=== PATIENT | female | born 1970 | race Caucasian/White ===

== ENCOUNTER 2016-07-02 08:45 | Inpatient (IN) ==
--- NOTE | 2016-06-29 22:40 | Discharge Summary ---
<Carrie Keita - Last Filed: 07/02/16 13:18> - Discharge Diagnosis (1) Arthritis of knee, left Priority: Primary Status: Acute (2) Obesity (BMI 30.0-34.9) Status: Chronic (3) Tobacco abuse Status: Chronic - Discharge Medications Home Medications: Aspirin Enteric Coated [Aspirin EC] 325 mg PO DAILY #21 tablet. 07/02/16 [Rx] OxyCODONE Immed Rel [Roxicodone 5 MG] 5 - 10 mg PO Q6HR PRN #40 tablet 07/02/16 [Rx] Allergies/Adverse Reactions: Allergies acetaminophen [From [place]] Adverse Reaction (Verified 07/02/16 09:15) vomiting, itching codeine Adverse Reaction (Verified 07/02/16 09:15) vomiting, itching hydrocodone [From [place]] Adverse Reaction (Verified 07/02/16 09:15) vomiting, itching morphine Adverse Reaction (Verified 07/02/16 09:15) vomiting, itching tramadol Adverse Reaction (Verified 07/02/16 09:15) vomiting, itching Primary care physician: Angella Cuadra CNP - Patient Status Disposition: Home, Self-Care Condition: Good - Discharge Instructions Follow Up With: Angella Cuadra CNP [Primary Care Provider] - - Hospital Course Hospital course: Ms. Cook is a 45 year old female - Time Spent with Patient Total time spent providing and/or coordinating discharge services: <Jay Johnson - Last Filed: 07/04/16 06:27> Date of Encounter: 07/04/16 Time of Encounter: 06:27 - Discharge Diagnosis (1) Tobacco abuse Priority: Secondary Status: Chronic (2) Obesity (BMI 30.0-34.9) Priority: Secondary Status: Chronic (3) Arthritis of knee, left Priority: Primary Status: Acute (4) Acute blood loss anemia Priority: Primary Status: Acute Primary care physician: Angella Cuadra CNP - Patient Status Functional capacity at discharge: uses cane/walker Overall status at discharge: patient is progressing back to baseline - Hospital Course Hospital course: Ms. Cook is a 45 year old female The patient had an uneventful postoperative course. They received antibiotics and physical therapy and were discharged in stable condition. There will follow -up in the office in 2 weeks. Aspirin DVT prophylaxis - Time Spent with Patient Total time spent providing and/or coordinating discharge services:
--- NOTE | 2016-07-02 08:47 | History & Physical Report ---
Date of Encounter: 07/02/16 Time of Encounter: 08:47 24 Hour HP Update - Instructions Instructions: If the History and Physical is less than 30 days old and was completed prior to A.M. admission and or procedure and has NOT been updated on calendar day of procedure please complete this update prior to performing procedure. - Update Patient reports changes in Medical Condition: No Changes in assessment/condition: No Changes in Medication: No Preop tests/diagnostics Reviewed: Yes Surgery Remains Indicated: Yes Consent for Planned Operative Procedure(s) Verified: Yes - Pre-Operative Checklist Preoperative Checklist Indicated: No Prophylactic Antibiotic Ordered: Yes Is VTE Prophylaxis Indicated?: Yes
[2016-07-02] MEDS: Ringers Solution, Lactated 1,000 ML IVC SCH ×2 (09:20→13:06)
[2016-07-02] MEDS ORDERED: Albuterol 2.5 MG/3 ML NEBULIZER IH ONE (09:28)
[2016-07-02] MEDS ORDERED: CeFAZolin Pre 2,000 MG/100 ML 2,000 MG/100 ML BAG IVPB ONE (09:28)
--- NOTE | 2016-07-02 09:50 | Anesthesia Evaluation PreOp ---
Date of Encounter: 07/02/16 Time of Encounter: 09:48 - Past History Planned Operation: L tka Cardiac History: Denies any Significant Hx Pulmonary History: Smoker, Snore TIRE LAYER History: Denies Any Significant HX Other Medical History: Renal (stones), Other (pud) Anesthesia History: No Prior Anesthetic Complications, Past Anesthesia (glen, cholecyst, stones, l knee arth) Alcohol Use: occasionally Drug use: none Medications and Allergies OxyCODONE/APAP 5/325 [Percocet 5/325 MG] 1 each PO Q6HR PRN 07/02/16 [History] Allergies acetaminophen [From [place]] Adverse Reaction (Verified 07/02/16 09:15) vomiting, itching codeine Adverse Reaction (Verified 07/02/16 09:15) vomiting, itching hydrocodone [From Van] Adverse Reaction (Verified 07/02/16 09:15) vomiting, itching morphine Adverse Reaction (Verified 07/02/16 09:15) vomiting, itching tramadol Adverse Reaction (Verified 07/02/16 09:15) vomiting, itching - Meds/Allergy Pre-op Review Medications Reviewed: Yes Allergies Reviewed: Yes Beta Blockers on Current Med List: No Anesthesia Results - Labs Laboratory Tests 06/03/16 06/03/16 06/03/16 12:19 12:19 12:19 Hgb 14.2 Hct 41.2 Plt Count 267 PT 10.5 INR 1.0 APTT 22.2 L Sodium 135 L Potassium 4.4 Creatinine 0.74 - Imaging EKG: report reviewed (sr) Anesthesia Exam O2 Sat Height 1.57 m Height 1.57 m Height 1.57 m Weight 80.739 kg Weight 80.739 kg Weight 80.739 kg O2 Sat by Pulse Oximetry 96 O2 Sat by Pulse Oximetry 96 Vital Signs Temp Pulse Resp BP Pulse Ox 99.1 F 102 18 117/84 96 07/02/16 09:03 07/02/16 09:03 07/02/16 09:03 07/02/16 09:03 07/02/16 09:03 Height: 1.57 Weight: 81 NPO (# of Hours): >8 - HEENT Pupil (Motor): Pupils equal, EOMI Mallampati: II Teeth: Poor dentition Oral Opening: Greater than 3 - TIRE LAYER LOC: Oriented TIRE LAYER Motor: Normal RUE, Normal LUE, Normal RLE, Normal LLE, Normal Face TIRE LAYER Sensory: Normal: RUE, LUE, RLE, LLE, Face - Cardiac Rhythm: Regular Murmur: None - Pulmonary Breath Sounds: bilateral Clear Respiratory Effort: Symmetrical Anesthesia Assess/Plan ASA Score: 2 Modified [place] Scale for Level of Consciousness: Cooperative, oriented, and tranquil Anesthetic Plan: General, Regional Monitoring Plan: Standard Monitors Recovery Plan: PACU
[2016-07-02] MEDS ORDERED: *HR* Propofol 200 MG/20 ML VIAL IVP ONE (10:09)
[2016-07-02] MEDS ORDERED: Lidocaine -MPF 2% 2 ML VIAL ONE (10:10)
[2016-07-02] MEDS ORDERED: Dexamethasone 4 MG/ML VIAL ONE (10:10)
[2016-07-02] MEDS ORDERED: *HR* Midazolam HCl 2 MG/2 ML VIAL ONE ×2 (10:10→10:54)
[2016-07-02] MEDS ORDERED: *HR* FentaNYL (PF) 100 MCG/2 ML VIAL ONE ×2 (10:10→10:54)
[2016-07-02] MEDS ORDERED: Ondansetron 4 MG/2 ML VIAL ONE (10:10)
[2016-07-02] MEDS ORDERED: *HR* Labetalol 100 MG/20 ML MDV IVP PRN (10:15)
[2016-07-02] MEDS ORDERED: *HR* Promethazine 25 MG/ML VIAL IVP PRN (10:15)
[2016-07-02] MEDS ORDERED: Ketorolac 15 MG/ML VIAL IVP ONE (10:15)
[2016-07-02] MEDS ORDERED: Bupivacaine/Clonidine Syringe 1 EACH SYRINGE ONE (10:53)
[2016-07-02] MEDS ORDERED: ROPIVACAINE HCL/PF 0.5% 30 ML VIAL ONE (10:53)
--- NOTE | 2016-07-02 11:23 | Anesthesia Procedures ---
Date of Encounter: 07/02/16 Time of Encounter: 11:05 Procedures: Anesthesia - Nerve Block Procedure Date: 07/02/16 Time: 11:05 Allergies/Adv Reactions: Allergies Allergy/AdvReac Type Severity Reaction Status Date / Time acetaminophen [From [place]] AdvReac vomiting, Verified 07/02/16 09:15 itching codeine AdvReac vomiting, Verified 07/02/16 09:15 itching hydrocodone [From [place]] AdvReac vomiting, Verified 07/02/16 09:15 itching morphine AdvReac vomiting, Verified 07/02/16 09:15 itching tramadol AdvReac vomiting, Verified 07/02/16 09:15 itching Vital Signs/O2 Sat/Glucose, Most Recent Temp Pulse Resp BP Pulse Ox 99.1 F 98 16 118/86 98 07/02/16 09:34 07/02/16 10:44 07/02/16 10:44 07/02/16 10:44 07/02/16 10:44 Surgical Procedure: Left TKA Checklist: Correct Patient Identifier, Correct procedure, History checked Correct side: Left Blood Thinner: No Monitor Applied: EKG, BP, Pulse Oximetry Supplemental Oxygen via Nasal Cannula (L/min): 2 Sedation: Versed (mg): 4 Sedation: Fentanyl (mcg): 100 Indication: Post Op Analgesia (per dr. harden) Pre-op Neuro Deficits: No Block Type: Femoral, Other (ipack) Catheter placed: No Sterile Technique: Yes Ultrasound used: Yes Anatomy identified: Yes Visual spread of Local: Yes Neuro Stimulation: Yes Nerve Stimulator Range: 0.2 - 0.4 mA Blood on Needle Aspiration: No Smooth Injection of Local: Yes Pain with Injection of Local: No Prep: Chlorhexadine Needle: 22 x 50 mm Stimuplex (femoral), 21 x 100 mm Stimuplex (ipack) Local: 0.25% Bupivicaine w/Clonidine 20 mcg/cc (20cc for ipack), Ropivacaine ( 0.5% 30 cc for femoral) Volume (cc): 30 femoral, 20 ipack Number of Attempts: 1 Complications: None/effective block Vitals: Vital Signs/O2 Sat/Glucose, Most Recent Temp Pulse Resp BP Pulse Ox 99.1 F 98 16 118/86 98 07/02/16 09:34 07/02/16 10:44 07/02/16 10:44 07/02/16 10:44 07/02/16 10:44 Comments: raul
--- NOTE | 2016-07-02 11:49 | Orthopedic Operative Note ---
Date of procedure: 07/02/16 Pre-op diagnosis: Left knee arthritis Post-op diagnosis: same Procedure: Procedure: Left Total knee replacement Estimated blood loss: 200 cc Hardware: Arthrex Femur: 5 Tibia: 5 PS insert: 14 Patella: 37 Exam Under anesthesia: External rotation deformity loss of full extension 5 degrees varus alignment. Procedural Notes: Grade 4 arthritic changes medial compartment grade 3 arthritic changes patellofemoral joint large loose body Operative procedure: The patient was brought to the operating room and placed on the operating room table. After general anesthesia was administered the operative knee was examined. Findings were noted in the exam under anesthesia. The operative extremity was prepped and draped in sterile surgical fashion. The patient received IV antibiotics prior to skin incision. A standard midline incision was made centered over the patella. The incision was made through the skin and subcutaneous tissue. A medial parapatellar tendon approach was performed. Care was taken to preserve tissue along the medial aspect of the patella. And to protect the patella tendon. The deep MCL was released off the medial tibia. The infra patella fat pad was excised. Knee was brought into flexion. Patient noted to have a large loose body which was removed, grade 4 arthritic changes medial compartment, grade 3 arthritic changes patellofemoral joint. The entry hole was made for the intramedullary femoral guide. The guide was seated in 6 degrees of valgus. Anterior cut was made followed by the distal cut. The ACL the PCL the medial and the lateral menisci were excised. The tibia was subluxed forward. The entry hole was made for the intramedullary tibial guide. Guide was seated to resect 2 mm off the more abnormal side. The knee was brought into flexion the distal femur was sized to a 5. The femoral guide was seated, the anterior cut was made followed by the posterior condylar cut, followed by the chamfer cuts. The finishing guide was seated the box cut was made and the lug holes were drilled. The tibia was sized to a 5, the tibial tray was seated and prepared with the large drill followed by the fin cutter. Trial reduction revealed full extension no varus valgus instability with the appropriate 14 PS Yelitza. The patella was everted and cut was made at the level of the insertion of the quadriceps and patella tendon. The patella was sized to a 37 the guide was seated and the lug holes are drilled. Trial reduction revealed excellent patella tracking. All trial components were removed all bony surfaces were irrigated. The tibia was cemented first followed by the femur. The 14 PS Yelitza was seated and the knee was brought into full extension. The patella was cemented and held in place with the patellar holding clamp. After the cement had hardened, the knee sat for 2 minutes with a Betadine saline solution. The knee was then irrigated out with 2 L of pulse irrigation. The extensor mechanism was closed with #2 FiberWire suture and #2 PDS suture. The subcutaneous tissue was then irrigated and closed deep with #1 PDS suture superficially with 0 PDS suture and skin was closed with skin milka. The patient was then placed in a sterile dressing and a postoperative brace extubated and transferred to recovery room in stable condition. Anesthesia: CHARITO Surgeon: Jay Johnson Box Toe Stitcher: Carrie Keita Condition: stable Disposition: PACU
[2016-07-02] MEDS ORDERED: *HR* HYDROmorphone 2 MG/ML SYRINGE ONE (12:19)
[2016-07-02] MEDS ORDERED: Acetaminophen IV 1,000 MG/100 ML INFUS..BTL IVPB ONE (12:43)
[2016-07-02] MEDS: *HR* HYDROmorphone (PF) 1 MG/ML SYRINGE IVP PRN ×4 (12:47→21:19)
[2016-07-02 13:03] LABS: Hematocrit 38.8 % (35.3-44.9); Hemoglobin 13.5 g/dL (11.5-15.4)
--- NOTE | 2016-07-02 13:29 | Anesthesia Evaluation Post Op ---
Date of Encounter: 07/02/16 Time of Encounter: 13:28 - Vital Signs Vital Signs: Vital Signs/O2 Sat/Glucose, Most Current Temp Pulse Resp BP Pulse Ox 07/02/16 13:19 97.9 F 98 16 125/92 95 07/02/16 13:09 90 16 118/81 94 L 07/02/16 12:59 89 16 110/79 93 L 07/02/16 12:49 98.4 F 88 16 100/75 95 07/02/16 12:39 93 16 107/76 96 07/02/16 12:29 82 22 106/72 95 07/02/16 12:19 98.1 F 77 22 98/79 95 07/02/16 10:44 98 16 118/86 98 07/02/16 09:50 18 117/84 96 07/02/16 09:34 99.1 F 102 18 117/84 96 - Lungs Lungs: Clear Ascult./Percussion - Airway Airway: Non-obstructed - Cardiovascular Regular Rate - Mental Status Mental Status: Alert & Oriented, Answers Appropriately - Pain Pain Scale: 4 Pain Scale used: Jorge (Faces) - Nausea Vomiting Nausea Vomiting: Not Present - Hydration Hydration: Tolerates oral liquids - Discharge PostOp Status: Discharge Patient to home
[2016-07-02] MEDS ORDERED: Temazepam 15 MG CAPSULE PO PRN (14:01)
[2016-07-02] MEDS ORDERED: Ondansetron 4 MG/2 ML VIAL IVP PRN (14:01)
[2016-07-02] MEDS ORDERED: MOM Conc 10 ML UD.LIQ PO PRN (14:01)
[2016-07-02] MEDS ORDERED: *HR* OxyCODONE Immed Rel 5 MG TABLET PO PRN (14:01)
[2016-07-02] MEDS ORDERED: Naloxone 0.4 MG/ML INJ IVP PRN (14:01)
[2016-07-02] MEDS ORDERED: Sennosides 8.6 MG TABLET PO PRN (14:01)
[2016-07-02] MEDS ORDERED: Ringers Solution, Lactated 1,000 ML IVC SCH (14:01)
[2016-07-02] MEDS: *HR* OxyCODONE Immed Rel 5 MG TABLET PO PRN ×2 (14:34→22:49)
[2016-07-02] MEDS ORDERED: *HR* Enoxaparin 30 MG/0.3 ML SYRINGE SQ SCH (18:00)
[2016-07-02] MEDS: ceFAZolin 2,000 MG in D5% in Water 100 ML IVPB SCH (18:06)
[2016-07-02] MEDS: *HR* Enoxaparin 30 MG/0.3 ML SYRINGE SQ SCH (18:07)
[2016-07-03] MEDS: *HR* HYDROmorphone (PF) 1 MG/ML SYRINGE IVP PRN ×10 (00:27→22:34)
[2016-07-03] MEDS: *HR* OxyCODONE Immed Rel 5 MG TABLET PO PRN ×2 (04:30→09:13)
[2016-07-03] MEDS: *HR* Enoxaparin 30 MG/0.3 ML SYRINGE SQ SCH ×2 (05:33→17:09)
[2016-07-03 06:01] LABS: Hematocrit 32.7 % (35.3-44.9); Hemoglobin 11.4 g/dL (11.5-15.4)
[2016-07-03] MEDS: ceFAZolin 2,000 MG in D5% in Water 100 ML IVPB SCH (06:43)
[2016-07-03 07:09] LABS: BUN/Creatinine Ratio 30 (6-26); Blood Urea Nitrogen 21 mg/dL (7-20); Calcium 8.8 mg/dL (8.6-10.8); Carbon Dioxide 15 mEq/L (19-29); Chloride 107 mEq/L (98-109); Glucose 121 mg/dL (70-99); Osmolality,Calculated 286 (280-300); Sodium 136 mEq/L (136-145); eGFR For African Americans > 60 (> 60); eGFR For Non-African Americans > 60 (> 60)
[2016-07-03 07:16] LABS: Potassium 4.7 mEq/L (3.5-4.5)
[2016-07-03] MEDS: Gabapentin 300 MG CAPSULE PO SCH ×3 (07:53→19:53)
--- NOTE | 2016-07-03 08:06 | Orthopedics Progress Note ---
Date of Encounter: 07/03/16 Time of Encounter: 08:05 - Assessment and Plan (1) Tobacco abuse Current Visit: Yes Status: Chronic (2) Obesity (BMI 30.0-34.9) Current Visit: Yes Status: Chronic (3) Arthritis of knee, left Current Visit: Yes Status: Acute Subjective Interval history: Patient was seen this morning complains of pain. Afebrile vital signs stable. Operative extremity: Neurovascularly intact Dressing clean dry and intact Calves nontender Assessment and plan: Continue with postoperative care will start on Neurontin and Flexeril. Objective Vital signs: Vital Signs Temp Pulse Resp BP Pulse Ox 07/03/16 07:08 98.1 F 107 16 115/74 94 L 07/03/16 00:43 98.1 F 96 16 125/85 93 L 07/02/16 22:30 98.7 F 120 18 132/84 94 L 07/02/16 15:50 98.0 F 91 16 119/90 96 07/02/16 14:50 98.1 F 95 17 114/87 96 07/02/16 14:20 97.9 F 95 15 122/89 95 07/02/16 13:50 97.7 F 98 18 132/95 95 07/02/16 13:29 97.9 F 99 16 113/83 96 07/02/16 13:19 97.9 F 98 16 125/92 95 07/02/16 13:09 90 16 118/81 94 L 07/02/16 12:59 89 16 110/79 93 L 07/02/16 12:49 98.4 F 88 16 100/75 95 07/02/16 12:39 93 16 107/76 96 07/02/16 12:29 82 22 106/72 95 07/02/16 12:19 98.1 F 77 22 98/79 95 07/02/16 10:44 98 16 118/86 98 07/02/16 09:50 18 117/84 96 07/02/16 09:34 99.1 F 102 18 117/84 96 07/02/16 09:03 99.1 F 102 18 117/84 96 - Labs CBC & BMP: 07/03/16 04:20 07/03/16 04:20 Labs: Abnormal lab results Hgb 11.4 g/dL (11.5-15.4) L D 07/03/16 04:20 Hct 32.7 % (35.3-44.9) L 07/03/16 04:20 Potassium 4.7 mEq/L (3.5-4.5) H 07/03/16 04:20 Carbon Dioxide 15 mEq/L (19-29) L 07/03/16 04:20 BUN 21 mg/dL (7-20) H 07/03/16 04:20 BUN/Creatinine Ratio 30 (6-26) H 07/03/16 04:20 Glucose 121 mg/dL (70-99) H 07/03/16 04:20 - VTE Documentation of Mechanical Device: Venous foot pump, device Consult Discharge Plan - Plan Referrals: Angella Cuadra, RELOCATION SPECIALIST [Primary Care Provider] -
[2016-07-04] MEDS: *HR* OxyCODONE Immed Rel 5 MG TABLET PO PRN ×3 (00:24→10:50)
[2016-07-04] MEDS: *HR* HYDROmorphone (PF) 1 MG/ML SYRINGE IVP PRN ×2 (02:33→04:42)
[2016-07-04 04:53] LABS: Hematocrit 29.1 % (35.3-44.9)
[2016-07-04 04:56] LABS: Hemoglobin 10.2 g/dL (11.5-15.4)
[2016-07-04 05:12] LABS: BUN/Creatinine Ratio 25 (6-26); Blood Urea Nitrogen 14 mg/dL (7-20); Carbon Dioxide 19 mEq/L (19-29); Chloride 104 mEq/L (98-109); Glucose 136 mg/dL (70-99); Osmolality,Calculated 277 (280-300); Potassium 4.5 mEq/L (3.5-4.5); Sodium 132 mEq/L (136-145); eGFR For African Americans > 60 (> 60); eGFR For Non-African Americans > 60 (> 60)
--- NOTE | 2016-07-04 06:28 | Orthopedics Progress Note ---
Date of Encounter: 07/04/16 Time of Encounter: 06:28 - Assessment and Plan (1) Tobacco abuse Current Visit: Yes Status: Chronic (2) Obesity (BMI 30.0-34.9) Current Visit: Yes Status: Chronic (3) Arthritis of knee, left Current Visit: Yes Status: Acute (4) Acute blood loss anemia Current Visit: Yes Status: Acute Subjective Interval history: Patient was seen this morning doing better Afebrile vital signs stable. Operative extremity: Neurovascularly intact Dressing clean dry and intact Calves nontender Assessment and plan: Continue with postoperative care hct 29 discharged today Objective Vital signs: Vital Signs Temp Pulse Resp BP Pulse Ox 07/04/16 04:48 98.7 F 119 17 113/77 94 L 07/04/16 01:18 98.7 F 105 17 116/79 94 L 07/03/16 22:37 112/76 07/03/16 22:15 99.2 F 120 15 98/63 95 07/03/16 15:08 98.1 F 107 18 112/81 95 07/03/16 11:22 98.2 F 108 18 107/71 94 L 07/03/16 07:08 98.1 F 107 16 115/74 94 L Intake and Output 07/03/16 07/03/16 07/04/16 15:59 23:59 07:59 Intake Total 480 / 480 Balance 480 / 480 Intake: Oral 480 / 480 Other: Meal Lunch Percent of Meal Consumed 75% # Voids 1 - Labs CBC & BMP: 07/04/16 04:16 07/04/16 04:16 Labs: Abnormal lab results Hgb 10.2 g/dL (11.5-15.4) L 07/04/16 04:16 Hct 29.1 % (35.3-44.9) L 07/04/16 04:16 Sodium 132 mEq/L (136-145) L 07/04/16 04:16 Creatinine 0.55 mg/dL (0.57-1.11) L 07/04/16 04:16 Glucose 136 mg/dL (70-99) H 07/04/16 04:16 Calculated Osmolality 277 (280-300) L 07/04/16 04:16 - VTE Documentation of Mechanical Device: Venous foot pump, device Consult Discharge Plan - Plan Referrals: Angella Cuadra, [employer]YER BUILDER [Primary Care Provider] -
[2016-07-04] MEDS: *HR* Enoxaparin 30 MG/0.3 ML SYRINGE SQ SCH (06:47)
[2016-07-04 10:31] VITALS: BP 105/71
[2016-07-04] MEDS: Gabapentin 300 MG CAPSULE PO SCH (10:48)
== END 2016-07-04 12:37 | disposition home or self-care (01) | DRG 302 ==
LOC: SAMDAY 08:45 → 3NENU 14:16
PROVIDERS: ADMIT Orthopaedic Surgery; ATTEND Orthopaedic Surgery